=== PATIENT | female | born 2000 | race Caucasian/White ===

== ENCOUNTER 2021-06-28 15:19 | Outpatient (CLI) | payer BC, SELFPAY | END 2021-06-28 23:59 | disposition home or self-care (01) | PROVIDERS: Referring Provider Otolaryngology; Visit Provider Otolaryngology | DX: J35.1 Hypertrophy of tonsils (principal) | CPT/HCPCS: 87070; 87077; 87186 ==

== ENCOUNTER → 2021-08-16 | Outpatient (CLI) | payer BC, SELFPAY | END | disposition home or self-care (01) | LOC: LAB 15:15 | PROVIDERS: Referring Provider Otolaryngology; Visit Provider Otolaryngology | DX: J02.9 Acute pharyngitis, unspecified (principal) | CPT/HCPCS: 36415; 87070; 87077; 87186 ==